=== PATIENT | male | born 1950 | race Caucasian/White ===

== ENCOUNTER → 2019-01-27 | Outpatient (CLI) | payer OTHER | END | disposition home or self-care (01) | LOC: ECT 10:59 | DX: F31.81 Bipolar II disorder (principal); K21.9 Gastro-esophageal reflux disease without esophagitis; K50.90 Crohn's disease, unspecified, without complications; K51.90 Ulcerative colitis, unspecified, without complications; Z88.8 Allergy status to other drugs, medicaments and biological substances ==

== ENCOUNTER 2019-02-19 05:11 | Outpatient (RCR) | payer MEDICARE ==
[~2019-02-19] VITALS: Ht 157.5 cm; Wt 61.7 kg
[2019-02-19] MEDS ORDERED: Methohexital Sodium Syr 100mg/10ml IVP ONE ×3 (05:12)
[2019-02-19] MEDS ORDERED: Glycopyrrolate 0.2mg/ml 1ml Vial ONE ×2 (05:12)
[2019-02-19] MEDS ORDERED: Succinylcholine 20mg/ml 10ml vial ONE ×3 (05:12)
[2019-02-19] MEDS ORDERED: NS 500ML ONE ×3 (05:12)
[2019-02-19 08:55] VITALS: BP 140/85
[2019-02-19 09:08] VITALS: BP 156/77
[2019-02-19 09:13] VITALS: BP 120/84
[2019-02-19 09:18] VITALS: BP 118/78
[2019-02-19 09:23] VITALS: BP 127/43
[2019-02-19 11:19] VITALS: BP 140/85
[2019-02-21] MEDS ORDERED: NS 500ML ONE (06:00)
[2019-02-21] MEDS ORDERED: Succinylcholine 20mg/ml 10ml vial ONE (06:00)
[2019-02-21] MEDS ORDERED: Methohexital Sodium Syr 100mg/10ml IVP ONE (06:00)
[2019-02-21] MEDS ORDERED: Glycopyrrolate 0.2mg/ml 1ml Vial ONE (06:00)
[2019-02-21 09:31] VITALS: BP 131/72
[2019-02-21 09:52] VITALS: BP 156/72
[2019-02-21 09:57] VITALS: BP 181/55
[2019-02-21 10:02] VITALS: BP 152/63
[2019-02-21 10:07] VITALS: BP 124/50
[2019-02-24 09:11] VITALS: BP 127/87
[2019-02-24 09:25] VITALS: BP 136/40
[2019-02-24 09:30] VITALS: BP 96/63
[2019-02-24 09:35] VITALS: BP 128/64
[2019-02-24 09:40] VITALS: BP 108/72
[2019-02-28 08:15] VITALS: BP 148/83
[2019-02-28 08:28] VITALS: BP 152/85
[2019-02-28 08:33] VITALS: BP 158/88
[2019-02-28 08:38] VITALS: BP 132/71
[2019-02-28 08:43] VITALS: BP 134/53
[2019-03-03] MEDS ORDERED: NS 500ML ONE (09:00)
[2019-03-03] MEDS ORDERED: Glycopyrrolate 0.2mg/ml 1ml Vial ONE (09:00)
[2019-03-03] MEDS ORDERED: Methohexital Sodium Syr 100mg/10ml IVP ONE (09:00)
[2019-03-03] MEDS ORDERED: Succinylcholine 20mg/ml 10ml vial ONE (09:00)
[2019-03-03 09:40] VITALS: BP 132/90
[2019-03-03 09:52] VITALS: BP 116/81
[2019-03-03 09:57] VITALS: BP 101/65
[2019-03-03 10:02] VITALS: BP 123/57
[2019-03-03 10:07] VITALS: BP 131/81
== END 2019-03-04 | disposition home or self-care (01) ==
LOC: ECT 05:11
DX: F31.81 Bipolar II disorder (principal); E55.9 Vitamin D deficiency, unspecified; E53.8 Deficiency of other specified B group vitamins
CPT/HCPCS: 90870; J2405

== ENCOUNTER 2019-03-07 05:31 | Outpatient (RCR) | payer MEDICARE | END 2019-04-04 | disposition home or self-care (01) | LOC: ECT 05:31 | DX: Z53.21 Procedure and treatment not carried out due to patient leaving prior to being seen by health care provider (principal) ==